=== PATIENT | female | born 1970 | race Hispanic/Latino ===

== ENCOUNTER 2020-06-28 17:06 | Emergency (ER) | payer OTHER ==
--- OUTSIDE RECORDS SUMMARY | 2020-06-28 17:09 | XMS REPORT | Encounter Summary ---
:1970 Author Care Team Providers Name Role Phone Trenton Damon MD Primary Care Provider [phone] Reason for Visit migraines; influenza vaccination; possib le UTI Instructions 1. Urinary tract infectious dise ase urinalysis, dipstick Macrobid 100 mg capsule Pyridium 200 mg tablet 2. Migraine without aura sumatriptan 50 mg tablet 3. Administration of influenza v accine Afluria Qd (36 mos up)(PF)60 mcg (15 mcg x4)/0.5 mL IM syringe Discussion Note RTC for any other concerns Patient educational handouts: No information available. Plan of Care Patient Instructions medications as directed; push fluid s; avoid caffeine Reminders Provider Appointments None recorded. Lab Urinalysis, In-Ho use Results Dipstick 06/24/2020 Referral None recorded. Procedures None recorded. Surgeries None recorded. Imaging None recorded. Medications Name Start Date fluoxetine 20 mg capsule 06/19/2020 Take 1 capsule every day by oral route. losartan 100 mg tablet 05/25/2020 Take 1 tablet every day by oral route. Macrobid 100 mg capsule Take 1 capsule every 12 hours by oral route for 7 day s. Pyridium 200 mg tablet Take 1 tablet 3 times a day by oral route. sumatriptan 25 mg tablet 06/24/2020 sumatriptan 50 mg tablet Take 1 mg every day by oral route as needed. may repeat dose x1 after 2h Medications Administered None recorded. Vitals Height Weight BMI Blood Pressure 62 in 139 lbs 16 oz 25.6 kg/m2 132/85 mm[Hg] Results Lab Results Date Name Specimen Result Interpretation Description Value Range Status Address Urinalysis, Leukocytes Large In-House Dipstick Results: For Internal U se Only, Do N ot Delete/karly ge Nitrite negative In-[place] se Results: F or Internal U se Only, Do N ot Delete/karly ge Urobilinogen .2 In- House Results: F or Internal U se Only, Do N ot Delete/karly ge Protein Trace In-House Results: F or Internal U se Only, Do N ot Delete/karly ge Ph 7.0 In-House Results: F or Internal U se Only, Do N ot Delete/karly ge Blood Large In-House Results: F or Internal U se Only, Do N ot Delete/karly ge Specific 1.020 In-Hous e [place] Results: For Internal U se Only, Do N ot Delete/karly ge Ketone Negative In-Hous e Results: F or Internal U se Only, Do N ot Delete/karly ge Bilirubin Negative In-H ouse Results: F or Internal U se Only, Do N ot Delete/karly ge Glucose Negative In-[place] se Results: F or Internal U se Only, Do N ot Delete/karly ge Appearance Cloudy In-Ho use Results: F or Internal U se Only, Do N ot Delete/karly ge Color Yellow In-House Results: F or Internal U se Only, Do N ot Delete/karly ge Allergies Code Code System Name Reaction Severity Status Onset NKDA Problems None recorded. Procedures Date Name Performed by Tubal Ligation Information not avai lable Vaccine List None recorded. Social History Tobacco Smoking Status Never Smoker Past Encounters Encounter Date Diagnosis Provider 06/24/2020 Urinary Tract Infectious Sherri Gonzalez P: 600 Disease; Migraine without Aura; [facility] [address], [place] [address], Vaccine Ph. History of Present Illness Note: pt to clinic for painful urination and blood in urine; she states symptoms began this am around 2; she took azo with no change; she also reports migraines; she reports migraines about 1 monthly; she takes sumatriptan but feels like not strong enough Review of Systems General Adult ROS Reported By: Patient Constitutional: Constitutional: no fever Cardiovascular: Cardiovascular: no chest kim n, no palpitations Respiratory: Respiratory: no cough, no wh eezing, no shortness of breath Gastrointestinal: Gastrointestinal: no vomitin g, no diarrhea, abdominal pain Genitourinary: Genitourinary: difficulty ur inating, increased urinary frequency, hematuria Musculoskeletal: Musculoskeletal: no muscle a ches Integumentary: Skin: no rashes Neurologic: Neurologic: no dizziness, mi graines Endocrine: Endocrine: no fatigue Physical Exam Geeta Brief Adult Exam - M/F Reported By: Patient Constitutional: General Appearance: healthy- appearing, well-nourished, well-developed. Level of Dis tress: NAD. Ambulation: ambulating normally Psychiatric: Mental Status: active and al ert Lungs: Auscultation: breath sounds normal Cardiovascular: Heart Auscultation: RRR, nor mal S1, normal S2, no murmurs Abdomen: Bowel Sounds: normal. Inspec tion and Palpation: soft, non-distended, no guarding, no CVA tenderne ss, suprapubic tenderness
--- OUTSIDE RECORDS SUMMARY | 2020-06-28 17:09 | XMS REPORT | Continuity of Care Document ---
:1970 Author Organization [facility] t Address [address] [place] [address] Care Team Providers Name Role Phone Unavailable Unavailable Unavailable Problems Condition Condition Condition Status Onset Resolution Last Treating Co mments Source Name Details Category Date Date Treatment Clinician Date Essential Essential Problem Active [facility] hypertensi Hypertensi 4-06 da on on 00:00: [facility] Allergies, Adverse Reactions, Alerts This patient has no known allergies or adverse reactions. Social History Smoking Status Start Date Stop Date Source Never Smoker [facility] Medications Ordered Filled Start Stop Current Ordering Indication Dosage Frequency Signature Comments Components Source Medication Medication Date Date Medication? Clinician (SIG) Name Name sumatriptan sumatriptan 2019-07 No sumatripta [facility] 25 mg 25 mg 2-07 n 25 mg da tablet tablet 00:00: tablet Medical 00 Group fluoxetine fluoxetine 2019-07 No 1capsul Q1D fluoxetine [facility] 20 mg 20 mg 2-02 e(s) 20 mg da capsule capsule 00:00: capsule Medi tyler Take 1 Take 1 00 Take 1 Group capsule capsule capsule every day every day every day by oral by oral by oral route. route. route. losartan losartan 2019-07 No 1 Q1D losartan [facility] 100 mg 100 mg 1-07 100 mg da tablet Take tablet Take 00:00: tablet Medical 1 tablet 1 tablet 00 Take 1 Group every day every day tablet by oral by oral every day route. route. by oral route. Macrobid Macrobid No 1capsul Q12H Macrobid [facility] 100 mg 100 mg e(s) 100 mg da capsule capsule capsule Medica l Take 1 Take 1 Take 1 Group capsule capsule capsule every 12 every 12 every 12 hours by hours by hours by oral route oral route oral route for 7 days. for 7 days. for 7 days. Pyridium Pyridium No 1 TID Pyridium [facility] 200 mg 200 mg 200 mg da tablet Take tablet Take tablet Medical 1 tablet 3 1 tablet 3 Take 1 G roup times a day times a day tablet 3 by oral by oral times a route. route. day by oral route. sumatriptan sumatriptan No 1mg Q1D sumatripta [facility] 50 mg 50 mg n 50 mg da tablet Take tablet Take tablet Medical 1 mg every 1 mg every Take 1 mg Group day by oral day by oral every day route as route as by oral needed. may needed. may route as repeat dose repeat dose needed. x1 after 2h x1 after 2h may repeat dose x1 after 2h Augmentin Augmentin No 1 Q12H Augmentin [facility] 875 mg-125 875 mg-125 875 mg-125 da mg tablet mg tablet mg tablet [facility] Take 1 Take 1 Take 1 al tablet tablet tablet Health every 12 every 12 every 12 Out reac hours by hours by hours by h oral route oral route oral route Program for 10 for 10 for 10 days. take days. take days. take with with with probiotic probiotic probiotic losartan losartan No 1 Q1D losartan [facility] 100 mg 100 mg 100 mg da tablet Take tablet Take tablet [facility] 1 tablet 1 tablet Take 1 al every day every day tablet Hea lth by oral by oral every day Outr eac route for route for by oral h 30 days. 30 days. route for Pr ogram 30 days. Vital Signs Vital Name Observation Time Observation Value Comments Source BP Diastolic 2020-06-24 00:00:00 85 mm[Hg] [facility] Height 2020-06-24 00:00:00 62 [in_i] [facility] BMI (Body Mass 2020-06-24 00:00:00 25.6 kg/m2 [facility] Medical Index) Group BP Systolic 2020-06-24 00:00:00 132 mm[Hg] [facility] Body Weight 2020-06-24 00:00:00 2240 [oz_av] [facility] BP Diastolic 2019-10-23 00:00:00 100 mm[Hg] [facility] Height 2019-10-23 00:00:00 60 [in_i] [facility] BMI (Body Mass 2019-10-23 00:00:00 25.6 kg/m2 [facility] [employer]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 Plan of Care Planned Activity Planned Date Details Comments Source Diagnostic Test 2020-06-24 urinalysis, [facility] Pending 00:00:00 dipstick [code = Group urinalysis, dipstick] Diagnostic Test 2019-10-23 rapid strep group [place] Pending 00:00:00 A, throat [code = Health Out reach rapid strep group Program A, throat] Instructions [facility] Encounters Start End Encounter Admission Attending Care Care Encounter Source Date/Time Date/Time Type Type Clinicians Facility Department ID 2020-06-24 2020-06-24 [facility] [place] - [id number] [facility] 00:00:00 00:00:00 Discovery leon Beck 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 2019-10-23 2019-10-23 Cherie KINCAID [place] - [id number] [facility] 00:00:00 00:00:00 Flakita Ackerman WEB PROGRAMMER: [address] [facility] [address], [facility] [address] h , Ph. Program Results This patient has no known results.
[2020-06-28 20:11] LABS: Urine Blood TRACE (NEG); Urine Glucose NEGATIVE (NEG); Urine Protein NEGATIVE (NEG)
[2020-06-28 20:43] LABS: Basophils % 0.7 % (0-1.3); Hematocrit 39.2 % (36.0-45.0); Lymphocytes % 48.1 % (15.3-44.8); MPV 8.2 fL (7.6-11.3); RBC Red Blood Cell Count 4.85 M/uL (3.86-4.86)
--- NOTE | 2020-06-28 20:50 | RAD REPORT ---
EXAM DESCRIPTION: CT - Abdomen Pelvis W Contrast - 06/28/2020 8:23 pm CLINICAL HISTORY: Abdominal pain and swelling, recent treatment for UTI COMPARISON: No comparisons TECHNIQUE: Biphasic, helical CT imaging of the abdomen and pelvis was performed following 100 ml non -ionic IV contrast. No oral contrast administered. All CT scans are performed using dose optimization technique as appropriate and may include automated exposure control or mA/KV adjustment according to patient size. FINDINGS: No suspicious findings in the lung bases. The liver, spleen, and pancreas show no suspicious findings. Small 8 mm round low-density mass collective bargaining specialist ior right lobe liver not fully evaluated due to size but is probably an incidental cyst. Gallbladder and biliary tree are also without suspicious finding. Symmetric renal function is seen with no hydronephrosis or suspicious renal mass. No pyelonephritis o r acute parenchymal process. No bladder abnormalities. No adrenal abnormalities. Uterus and ovaries s how no suspicious findings. Trace amount of free fluid in the cul-de-sac is well within physiologic l imits. No dilated bowel loops or bowel wall thickening. Normal appendix or appendiceal stump. No active GI p rocess seen. Patient has a few sigmoid diverticula. No free air, inflammatory stranding or pneumatosis. No hernia, mass or bulky lymphadenopathy. No suspicious bony findings. IMPRESSION: Contrast enhanced CT abdomen and pelvis showing no acute or emergent finding.
[2020-06-28 21:01] LABS: ALT/SGPT 27 U/L (12-78); AST/SGOT 18 U/L (15-37); Albumin 3.5 g/dL (3.4-5.0); Alkaline Phosphatase 119 U/L (45-117); BUN Blood Urea Nitrogen 12 mg/dL (7-18); Bicarbonate 27 mmol/L (21-32); Bilirubin Direct 0.1 mg/dL (0-0.2); Bilirubin Total 0.4 mg/dL (0.2-1.0); Glucose Level 97 mg/dL (74-106); Lipase 493 U/L (73-393); Potassium 3.6 mmol/L (3.5-5.1); Protein, Total 7.3 g/dL (6.4-8.2); Sodium Level 138 mmol/L (136-145)
--- NOTE | 2020-06-28 23:15 | ER ---
Nurse's Notes [facility] Name: Aranza Antoine Age: 49 yrs Sex: Female : 1970 Arrival Date: 06/28/2020 Time: 17:09 Bed 8 Private MD: Diagnosis: Generalized abdominal pain Presentation: 06/28 17:34 Chief complaint: Patient states: reports abd swelling for 1 week, was recently treated em for UTI, also reports N/V, denies burning with urination or fever. Coronavirus screen: Client denies travel out of the [place] in the last 14 days. Ebola Screen: Patient negative for fever greater than or equal to 101.5 degrees Fahrenheit, and additional compatible Ebola Virus Disease symptoms Patient denies exposure to infectious person. Patient denies travel to an Ebola-affected area in the 21 days before illness onset. No symptoms or risks identified at this time. Initial Sepsis Screen: Does the patient meet any 2 criteria? No. Patient's initial sepsis screen is negative. Does the patient have a suspected source of infection? No. Patient's initial sepsis screen is negative. Risk Assessment: Do you want to hurt yourself or someone else? Patient reports no desire to harm self or others. Onset of symptoms was June 28, 2020. 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 - Social history:: Smoking status: . Screenin:15 Abuse screen: Denies threats or abuse. Denies injuries from another. Nutritional hb screening: No deficits noted. Tuberculosis screening: No symptoms or risk factors identified. Fall Risk None identified. Assessment: 18:15 General: Appears in no apparent distress. Behavior is calm, cooperative. Pain: Pain hb currently is 7 out of 10 on a pain scale. Neuro: Level of Consciousness is awake, alert, obeys commands, Oriented to person, place, time, situation. Cardiovascular: Capillary refill < 3 seconds Patient's skin is warm and dry. Respiratory: Respiratory effort is even, unlabored, Respiratory pattern is regular, symmetrical. GI: Reports lower abdominal pain, upper abdominal pain, nausea. : No signs and/or symptoms were reported regarding the genitourinary system. EENT: No signs and/or symptoms were reported regarding the EENT system. Derm: Skin is pink, warm \T\ dry. Musculoskeletal: No signs and/or symptoms reported regarding the musculoskeletal system. 19:30 General: Appears in no apparent distress. comfortable, Behavior is appropriate for age. lp1 Pain: Complains of pain in epigastric area Pain currently is 4 out of 10 on a pain scale. Quality of pain is described as sharp. Neuro: Level of Consciousness is awake, alert, obeys commands. Cardiovascular: Patient's skin is warm and dry. Respiratory: Respiratory effort is even, unlabored. GI: Abdomen is non-distended, Bowel sounds present X 4 quads. Abdomen is tender to palpation in epigastric area Reports upper abdominal pain, nausea. : Reports burning with urination, Currently being treated for UTI, taking antibiotics. Derm: Skin is pink, warm \T\ dry. Musculoskeletal: No deficits noted. 20:35 Reassessment: Patient appears in no apparent distress at this time. Patient and/or lp1 family updated on plan of care and expected duration. Pain level reassessed. Patient is alert, oriented x 3, equal unlabored respirations, skin warm/dry/pink. 21:30 Reassessment: Patient appears in no apparent distress at this time. Patient aware of lp1 waiting to have Ultrasound done. 22:51 Reassessment: Patient appears in no apparent distress at this time. Patient is alert, lp1 oriented x 3, equal unlabored respirations, skin warm/dry/pink. Awaiting ultrasound to do imaging. 23:13 Reassessment: Provider at bedside to discuss results with patient. lp1 Vital Signs: 17:34 BP 149 / 92; Pulse 63; Resp 18; Temp 97.3; Pulse Ox 100% on R/A; Weight 63.5 kg; Height em 5 ft. 2 in. (157.48 cm); Pain 7/10; 20:30 BP 139 / 79; Pulse 70; Resp 18; Pulse Ox 100% on R/A; lp1 21:30 BP 132 / 78; Pulse 67; Resp 18; Pulse Ox 100% on R/A; lp1 22:30 BP 126 / 77; Pulse 68; Resp 18; Pulse Ox 100% on R/A; lp1 23:28 BP 139 / 72; Pulse 66; Resp 16; Pulse Ox 100% on R/A; Pain 6/10; lp1 17:34 Body Mass Index 25.61 (63.50 kg, 157.48 cm) ED Course: 17:09 Patient arrived in ED. ag5 17:36 Triage completed. em 17:36 Arm band placed on. em 18:09 Ruddy Concepcion PA is PHCP. [facility] 18:09 Charles Morales MD is Attending Physician. jmm 18:15 Patient has correct armband on for positive identification. Bed in low position. Call hb light in reach. 18:16 Allie Maddox, RN is Primary Nurse. hb 20:15 Inserted 22g IV to L AC initiated by staging technician. lp1 20:24 CT Abd/Pelvis - IV Contrast Only In Process Unspecified. EDMS 20:30 Initial lab(s) drawn, by me, sent to lab. lp1 22:55 No provider procedures requiring assistance completed. lp1 23:14 Zoey Griffin MD is Referral Physician. m 23:29 IV discontinued, No redness/swelling at site. Pressure dressing applied. lp1 1212 00:17 US Abdomen Limited In Process Unspecified. EDMS Administered Medications: 12 23:29 Drug: Tylenol #3 (300 mg-30 mg) 1 tablet {Note: RASS 0.} Route: PO; lp1 23:30 Follow up: Response: Medication administered at discharge. lp1 Outcome: 23:14 Discharge ordered by . [facility] 23:29 Discharged to home ambulatory, with significant other. lp1 23:29 Condition: good 23:29 Discharge instructions given to patient, significant other, Instructed on discharge instructions, follow up and referral plans. medication usage, Demonstrated understanding of instructions, follow-up care, medications, Prescriptions given X 2. 23:30 Patient left the ED. lp1 Signatures: Dispatcher [employer] EDMS Ruddy Concepcion PA PA jmm Munoz, Edgar, RN RN Karissa Ramirez RN RN 1 Allie Maddox, RN RN Blake Chanel 5
--- NOTE | 2020-06-28 23:15 | EDPHYS ---
Physician Documentation [facility] Name: Aranza Antoine Age: 49 yrs Sex: Female : 1970 Arrival Date: 06/28/2020 Time: 17:09 Bed 8 Private MD: ED Physician Charles Morales HPI: 06/28 18:36 This 49 yrs old Female presents to ER via Ambulatory with complaints of jmm Abdominal Pain, Abdominal Swelling. 18:36 The patient presents with abdominal pain. Onset: The symptoms/episode began/occurred jmm gradually, 1 week(s) ago. The symptoms do not radiate. Associated signs and symptoms: Pertinent negatives: dysuria, fever, vomiting. The symptoms are described as achy, sharp. Modifying factors: The symptoms are alleviated by nothing, the symptoms are aggravated by nothing. The patient has not experienced similar symptoms in the past. 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 - Social history:: Smoking status: . ROS: 18:36 Constitutional: Negative for fever, chills, and weight loss, Cardiovascular: Negative jmm for chest pain, palpitations, and edema, Respiratory: Negative for shortness of breath, cough, wheezing, and pleuritic chest pain. 18:36 Abdomen/GI: Positive for abdominal pain. 18:36 All other systems are negative. Exam: 18:36 Constitutional: This is a well developed, well nourished patient who is awake, alert, jmm and in no acute distress. Head/Face: atraumatic. Eyes: EOMI, no conjunctival erythema appreciated ENT: Moist Mucus Membranes Neck: Trachea midline, Supple Chest/axilla: Normal chest wall appearance and motion. Cardiovascular: Regular rate and rhythm. No edema appreciated Respiratory: Normal respirations, no respiratory distress appreciated 18:36 Back: Normal ROM Skin: General appearance color normal MS/ Extremity: Moves all extremities, no obvious deformities appreciated, no edema noted to the lower extremities Neuro: Awake and alert, normal gait Psych: Behavior is normal, Mood is normal, Patient is cooperative and pleasant 18:36 Abdomen/GI: Inspection: abdomen appears normal, Bowel sounds: normal, Palpation: soft, mild abdominal tenderness, in all quadrants. Vital Signs: 17:34 BP 149 / 92; Pulse 63; Resp 18; Temp 97.3; Pulse Ox 100% on R/A; Weight 63.5 kg; Height em 5 ft. 2 in. (157.48 cm); Pain 7/10; 20:30 BP 139 / 79; Pulse 70; Resp 18; Pulse Ox 100% on R/A; lp1 21:30 BP 132 / 78; Pulse 67; Resp 18; Pulse Ox 100% on R/A; lp1 22:30 BP 126 / 77; Pulse 68; Resp 18; Pulse Ox 100% on R/A; lp1 23:28 BP 139 / 72; Pulse 66; Resp 16; Pulse Ox 100% on R/A; Pain 6/10; lp1 17:34 Body Mass Index 25.61 (63.50 kg, 157.48 cm) em MDM: 18:33 Patient medically screened. [facility] 18:37 Data reviewed: vital signs, nurses notes. Counseling: I had a detailed discussion with aspen the patient and/or guardian regarding:. 23:13 Data reviewed: lab test result(s), radiologic studies, CT scan, ultrasound. Counseling: svetlana I had a detailed discussion with the patient and/or guardian regarding: the historical points, exam findings, and any diagnostic results supporting the discharge/admit diagnosis, lab results, radiology results, the need for outpatient follow up, to return to the emergency department if symptoms worsen or persist or if there are any questions or concerns that arise at home. ED course: US, CT nml. Advised to follow up with GI for further evaluation. Patient is otherwise given strict return precautions. Patient understood and agrees with the plan of care. . 06/28 19:12 Order name: Urine --Ancillary (enter results); Complete Time: 20:23 tt3 06/28 19:12 Order name: Urine Dipstick--Ancillary (enter results); Complete Time: 20:23 tt3 06/28 19:54 Order name: Basic Metabolic Panel; Complete Time: 21:01 [facility] 06/28 19:54 Order name: CBC with Diff; Complete Time: 20:51 [facility] 06/28 19:54 Order name: Hepatic Function; Complete Time: 21:01 [facility] 06/28 19:54 Order name: Lipase; Complete Time: 21:01 [facility] 06/28 19:54 Order name: IV Saline Lock; Complete Time: 20:49 [facility] 06/28 19:54 Order name: Labs collected and sent; Complete Time: 20:49 [facility] 06/28 19:55 Order name: CT Abd/Pelvis - IV Contrast Only; Complete Time: 20:51 [facility] 06/28 21:03 Order name: US Abdomen Limited [facility] 06/28 23:12 Order name: CREATININE WHOLE BLOOD; Complete Time: 23:13 EDMS Administered Medications: 23:29 Drug: Tylenol #3 (300 mg-30 mg) 1 tablet {Note: RASS 0.} Route: PO; lp1 23:30 Follow up: Response: Medication administered at discharge. lp1 Disposition: 06/28/20 23:14 Discharged to Home. Impression: Generalized abdominal pain. - Condition is Stable. - Discharge Instructions: Abdominal Pain, Adult, Acute Pancreatitis. - Prescriptions for Zofran ODT 4 mg Oral tablet,disintegrating - place 1 tablet by TRANSLINGUAL route every 4-6 hours; 20 tablet. Tylenol- Codeine #3 300-30 mg Oral Tablet - take 1 tablet by ORAL route every 6 hours As needed; 20 tablet. - Medication Reconciliation Form, Thank You Letter, Antibiotic Education, Prescription Opioid Use form. - Follow up: Zoey Griffin MD; When: 2 - 3 days; Reason: Recheck today's complaints, Continuance of care, Re-evaluation by your physician. Addendum: 06/30/2020 17:39 Co-signature as Attending Physician, Charles Morales MD I agree with the assessment and k dr plan of care. Signatures: Dispatcher [employer] EDPR Charles Morales MD MD kdr Mickail, Joel, PA PA Wilfredo Alvarado, RN RN Karissa Carbajal RN RN lp1 Corrections: (The following items were deleted from the chart) 06/28 23:30 23:14 06/28/2020 23:14 Discharged to Home. Impression: Generalized abdominal pain. lp1 Condition is Stable. Forms are Medication Reconciliation Form, Thank You Letter, Antibiotic Education, Prescription Opioid Use. Follow up: Zoey Griffin; When: 2 - 3 days; Reason: Recheck today's complaints, Continuance of care, Re-evaluation by your physician. aspen
[2020-06-28] MEDS ORDERED: CODEINE 30MG/APAP 300MG TAB ONE (23:42)
--- NOTE | 2020-06-29 08:59 | RAD REPORT ---
EXAM DESCRIPTION: US - Abdomen Exam Limited - 06/29/2020 12:10 am CLINICAL HISTORY: Abdominal pain. COMPARISON: None. FINDINGS: The gallbladder wall is not thickened. A gallstone is not seen. The biliary tree is normal caliber. IMPRESSION: Unremarkable gallbladder ultrasound.
[2020-07-03 10:50] VITALS: O2SAT 100
[2020-07-03 10:51] VITALS: TEMP 97.3
[2020-07-03 10:55] VITALS: BP 139/72
== END 2020-06-28 23:30 | disposition home or self-care (01) ==
LOC: ER 17:06
DX: R10.84 Generalized abdominal pain (principal); I10 Essential (primary) hypertension
CPT/HCPCS: 85025; 80048; 36415; 81025; 82565; 80076; 81003; 83690; 74177; 76705; 99284; Q9967